=== PATIENT | male | born 1990 | race African-American/Black ===

== ENCOUNTER 2017-09-24 10:42 | Emergency (ER) | payer SELFPAY ==
[2017-09-24] MEDS ORDERED: Haloperidol Lactate 5 MG/ML VIAL ONE (11:51)
[2017-09-24 11:52] LABS: #Basophils 0.1 thou/uL (0.0-0.2); #Eosinphils 0.1 thou/uL (0.0-0.7); #Lymphocytes 2.1 thou/uL (1.20-3.40); #Monocytes 1.2 thou/uL (0.11-0.59); #Neutrophils 11.5 thou/uL (1.40-6.50); %Basophils 0.6 % (0.0-1.0); %Eosinophils 0.5 % (0.0-10.0); %Lymphocytes 13.9 % (21.0-51.0); %Monocytes 8.1 % (0.0-10.0); %Neutrophils 76.9 % (42.0-75.0); Hemoglobin 17.8 g/dL (14.0-18.0); Mean Corpuscular HGB CONC 33.9 g/dL (32.0-36.0); Mean Corpuscular Hemoglobin 30.7 pg (27.0-31.0); Mean Corpuscular Volume 90.5 fl (80.0-94.0); Mean Platelet Volume 8.8 fL (7.4-10.4); Platelet Count 252 thou/uL (130-400); RBC Distribution Width 12.1 % (11.5-14.5); Red Blood Cell (RBC) Count 5.82 mill/uL (4.70-6.10); White Blood Cell (WBC) Count 14.9 thou/uL (4.8-10.8)
[2017-09-24 12:15] LABS: Anion Gap 21 mmol/L (10-20); BUN (Urea Nitrogen) 18 mg/dL (8.9-20.6); CK (CPK) 77 U/L (30-200); Calc. Creatinine Clearance 0 mL/min (70-130); Calcium 10.4 mg/dL (7.8-10.44); Carbon Dioxide 28 mmol/L (22-29); Chloride 88 mmol/L (98-107); Estimated GFR-MDRD 68; Glucose 103 mg/dL (70-105); Sodium 134 mmol/L (136-145)
--- NOTE | 2017-09-24 12:15 | CT ---
CT BRAIN NONCONTRAST: HISTORY: 27-year-old male with altered mental status, nausea, and emesis. FINDINGS: The ventricles are normal in size and configuration. There is no midline shift or any other mass eff ect. There is no evidence of acute intracranial hemorrhage, large cortical infarct, or extraaxial fl uid collection. The bo matter /white matter differentiation is maintained. The calvarium is intac t. The tympanomastoid cavities, and the upper portions of the paranasal sinuses included in these im ages, are grossly clear. IMPRESSION: Normal. jn [] POS: [facility]
[2017-09-24 12:22] LABS: Potassium 2.9 mmol/L (3.5-5.1)
[2017-09-24] MEDS ORDERED: Potassium Chloride 20 MEQ TAB ONE (12:25)
== END 2017-09-24 12:58 | disposition home or self-care (01) ==
LOC: ERS 10:42
DX: F12.188 Cannabis abuse with other cannabis-induced disorder (principal); R11.2 Nausea with vomiting, unspecified; Z79.899 Other long term (current) drug therapy
CPT/HCPCS: 70450; 80048; 82550; 85025; 96374; J1630

== ENCOUNTER 2021-05-22 13:51 | Emergency (ER) | payer SELFPAY ==
[2021-05-22 21:32] LABS: SARS-CoV-2 PCR by NAA Not Detected (NotDetected)
== END 2021-05-22 16:10 | disposition home or self-care (01) ==
LOC: ERS 13:51
DX: J02.9 Acute pharyngitis, unspecified (principal); J34.89 Other specified disorders of nose and nasal sinuses; R68.83 Chills (without fever); J45.909 Unspecified asthma, uncomplicated; Z20.822 Contact with and (suspected) exposure to COVID-19
CPT/HCPCS: 99283; U0003; U0005

== ENCOUNTER 2021-08-14 14:33 | Emergency (ER) | payer SELFPAY ==
[2021-08-15 14:21] LABS: SARS-CoV-2 PCR by NAA DETECTED (NotDetected)
== END 2021-08-14 16:03 | disposition home or self-care (01) ==
LOC: ERS 14:33
DX: U07.1 COVID-19 (principal); J45.909 Unspecified asthma, uncomplicated; F17.210 Nicotine dependence, cigarettes, uncomplicated
CPT/HCPCS: 99284; U0003; U0005